=== PATIENT | female | born 1990 | race African-American/Black ===

== ENCOUNTER 2021-07-10 19:31 | Emergency (ER) | payer OTHER ==
[~2021-07-10] VITALS: Ht 165.1 cm; Wt 77.1 kg
[2021-07-10] MEDS ORDERED: BACTRIM DS TAB1 EAC1 PO (21:05)
[2021-07-10] MEDS ORDERED: NORCO5 PO (21:05)
[2021-07-10 21:55] VITALS: BP 145/88
== END 2021-07-10 21:30 | disposition home or self-care (01) ==
LOC: ER 19:31
DX: S71.132A Puncture wound without foreign body, left thigh, initial encounter (principal); S80.212A Abrasion, left knee, initial encounter